=== PATIENT | male | born 2000 | race Caucasian/White ===

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

== ENCOUNTER → 2019-09-11 16:21 | Outpatient (CLI) | payer BC, SELFPAY ==
[2019-09-11 17:29] LABS: Hematocrit 41.1 % (41-53); Hemoglobin 14.4 g/dL (13.5-17.5); Mean Corpuscular HGB Conc 35.1 % (30-36); Mean Corpuscular Hemoglobin 30.1 PG (26-34); Mean Corpuscular Volume 85.7 fL (80-100); Platelet Count 194 X10^3/uL (150-400); Red Blood Cell Count 4.79 X10^6/uL (4.5-5.9); Red Cell Distribution Width 13.5 % (11.6-14.8)
[2019-09-11 18:12] LABS: TSH w/ Reflex to FT4 1.01 uIU/mL (0.47-4.68)
== END ==
PROVIDERS: Referring Provider Registered Nurse Diabetes Educator; Visit Provider Registered Nurse Diabetes Educator
DX: F32.9 Major depressive disorder, single episode, unspecified (principal)
CPT/HCPCS: 36415; 82306; 84443; 85027

== ENCOUNTER 2020-08-28 00:21 | Emergency (ER) | payer OTHER, SELFPAY ==
[2020-08-28 00:34] VITALS: BP 108/56; PULSE 71; RESP 17; TEMP 36.6; O2SAT 99; BMI 27.1
[2020-08-28 00:46] LABS: COVID19 -Nasal RAPID Negative (Negative)
== END 2020-08-28 00:51 | disposition left against medical advice (07) ==
PROVIDERS: Emergency Provider Emergency Medicine
DX: Z20.822 Contact with and (suspected) exposure to COVID-19 (principal)
CPT/HCPCS: 87635; 99281; C9803